=== PATIENT | female | born 2000 | race Caucasian/White ===

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

== ENCOUNTER → 2022-01-01 | Outpatient (CLI) | payer OTHER | END | disposition home or self-care (01) | LOC: RAD 14:46 | PROVIDERS: ATTEND Orthopaedic Surgery | DX: S93.491D Sprain of other ligament of right ankle, subsequent encounter (principal); X58.XXXD Exposure to other specified factors, subsequent encounter ==

== ENCOUNTER → 2024-04-16 | Outpatient (CLI) | payer OTHER | END | disposition home or self-care (01) | LOC: LAB 17:26 | PROVIDERS: ATTEND Nurse Practitioner Family | DX: R30.0 Dysuria (principal) ==

== ENCOUNTER 2024-05-28 12:58 | Emergency (ER) | payer OTHER ==
[~2024-05-28] VITALS: Ht 152.4 cm; Wt 108.9 kg
[2024-05-28] MEDS ORDERED: Albuterol Sulf/Ipratropium 3 ML VIAL NEB ONE (13:15)
[2024-05-28] MEDS ORDERED: methylPREDNISolone sod succ 125 MG VIAL IM ONE (13:15)
[2024-05-28] MEDS ORDERED: ALBUTEROL 8 GM INHALER INH ONE (14:30)
[2024-05-28] MEDS ORDERED: PREDNISONE50 MG PO (14:30)
== END 2024-05-28 15:03 | disposition home or self-care (01) ==
LOC: ED 12:58
DX: J45.901 Unspecified asthma with (acute) exacerbation (principal)

== ENCOUNTER 2024-06-25 20:09 | Emergency (ER) | payer OTHER ==
[~2024-06-25] VITALS: Ht 162.5 cm; Wt 108.9 kg
[~2024-06-25 20:09] MED LIST changes: +PREDNISONE50 MG PO
[2024-06-25] MEDS ORDERED: SERTRALINE HYD100 MG PO (20:34)
[2024-06-25] MEDS ORDERED: ZYRTEC ALLERGY10 MG PO (20:34)
[2024-06-25] MEDS ORDERED: MELOXICAM15 MG PO (22:34)
[2024-06-25] MEDS ORDERED: Acetaminophen/Oxycodone 5 MG/325 MG TABLET PO ONE (22:35)
== END 2024-06-25 22:45 | disposition home or self-care (01) ==
LOC: ED
DX: S93.402A Sprain of unspecified ligament of left ankle, initial encounter (principal); J45.909 Unspecified asthma, uncomplicated; X50.1XXA Overexertion from prolonged static or awkward postures, initial encounter; Y93.89 Activity, other specified; Y92.89 Other specified places as the place of occurrence of the external cause; Y99.0 Civilian activity done for income or pay

== ENCOUNTER 2025-05-27 01:59 | Emergency (ER) | payer OTHER ==
[~2025-05-27] VITALS: Ht 162.6 cm; Wt 111.1 kg
[~2025-05-27 01:59] MED LIST changes: +MELOXICAM15 MG PO; +SERTRALINE HYD100 MG PO; +ZYRTEC ALLERGY10 MG PO
== END 2025-05-27 03:40 | disposition home or self-care (01) ==
LOC: ED 01:59
DX: B34.9 Viral infection, unspecified (principal); J45.909 Unspecified asthma, uncomplicated; Z87.440 Personal history of urinary (tract) infections; Z20.822 Contact with and (suspected) exposure to COVID-19